=== PATIENT | female | born 1985 | race Two or more races ===

== ENCOUNTER 2018-07-26 17:48 | Emergency (ER) | payer OTHER ==
[~2018-07-26] VITALS: Ht 157.5 cm; Wt 97.5 kg
[2018-07-26] MEDS ORDERED: PRENA1 TRUE CO1 EACH (18:06)
== END 2018-07-26 20:23 | disposition home or self-care (01) ==
LOC: ER 17:48
DX: O26.892 Other specified pregnancy related conditions, second trimester (principal); R10.2 Pelvic and perineal pain; Z34.02 Encounter for supervision of normal first pregnancy, second trimester

== ENCOUNTER 2018-11-25 17:10 | Outpatient (CLI) | payer OTHER ==
[~2018-11-25] VITALS: Ht 157.5 cm; Wt 115.2 kg
[~2018-11-25 17:10] MED LIST: PRENA1 TRUE CO1 EACH
--- NOTE | 2018-11-25 18:40 | NUR ---
SE MIDE BP MANUAL LA CUAL DA UN RESULTADO 130/70 (MANUAL) SE NOT A DR. YING Y SE OMITE MEDICAMENTO LABETALO. SE CONTINUA MONITOREANDO POR CAMBIOS.
--- NOTE | 2018-11-25 20:30 | NUR ---
MRGissel NICK ORIENTA A PACIENTE SOBRE TRATAMIENTO. JOAQUIN MUESTRAS DE LABORATORIO ORDENADAS. SE MANTIENE EN OBSERVACION POR CAMBIOS.
== END 2018-11-26 12:00 | disposition home or self-care (01) ==
LOC: ER 17:10 → EDBD 17:34 → OBS/DEL 20:00 → LDR 20:04 → ER 20:04 → LDR 23:44 → OBS/DEL 11-26 12:00 → LDR 11-26 18:22
DX: O14.03 Mild to moderate pre-eclampsia, third trimester (principal); Z34.03 Encounter for supervision of normal first pregnancy, third trimester

== ENCOUNTER 2018-11-30 15:29 | Inpatient (IN) | payer OTHER ==
[~2018-11-30] VITALS: Ht 160 cm; Wt 115.2 kg
[2018-11-30] MEDS ORDERED: FOLIC ACID0.4 MG PO (19:18)
[2018-12-03] MEDS ORDERED: IBUPROFEN400 MG PO ×2 (11:33)
== END 2018-12-03 14:46 | DRG 786 ==
LOC: LDR 15:29 → OB/GYN 15:29
PROVIDERS: ADMIT Obstetrics & Gynecology
PROC: 4A1HXCZ Monitoring of Products of Conception, Cardiac Rate, External Approach (ICD-10-PCS; 2018-11-30)
PROC: 4A033R1 Measurement of Arterial Saturation, Peripheral, Percutaneous Approach (ICD-10-PCS; 2018-11-30)
PROC: 10D00Z1 Extraction of Products of Conception, Low, Open Approach (ICD-10-PCS; principal; 2018-11-30 17:00)
DX: O14.13 Severe pre-eclampsia, third trimester (principal); O60.14X0 Preterm labor third trimester with preterm delivery third trimester, not applicable or unspecified; Z3A.36 36 weeks gestation of pregnancy; Z37.0 Single live birth